=== PATIENT | female | born 1990 | race Caucasian/White ===

== ENCOUNTER 2022-12-21 16:25 | Emergency (ER) | payer OTHER ==
[~2022-12-21] VITALS: Ht 165.1 cm; Wt 55.4 kg
[2022-12-21 16:27] VITALS: BP 135/77
[2022-12-21 18:14] LABS: BASO # 0.1 10^3/uL (0.0-0.2); BASO % 0.5 % (0.0-1.0); EOS # 0.1 10^3/uL (0.0-0.5); EOS % 0.5 % (0.0-3.0); HEMATOCRIT 35.5 % (36.0-47.0); HEMOGLOBIN 12.3 g/dl (12.0-15.5); LYMPH % 20.7 % (24.0-44.0); MEAN CORPUSCULAR HEMOGLOBIN 30.4 pg (27.0-33.0); MEAN CORPUSCULAR HGB CONC 34.6 g/dl (32.0-36.5); MEAN CORPUSCULAR VOLUME 87.7 fl (80.0-96.0); MONO # 0.6 10^3/uL (0.0-0.8); MONO % 5.8 % (2.0-8.0); NEUTROPHILS # 6.9 10^3/uL (1.5-8.5); NEUTROPHILS % 72.2 % (36.0-66.0); PLATELET COUNT, AUTOMATED 305 10^3/uL (150-450); RED BLOOD COUNT 4.05 10^6/uL (4.00-5.40); WHITE BLOOD COUNT 9.6 10^3/uL (4.0-10.0)
[2022-12-21 18:35] LABS: LIPASE 47 U/L (12-53)
[2022-12-21] MEDS ORDERED: MORPHINE 4 MG/ML 1ML VIAL IV ONE (18:35)
[2022-12-21] MEDS ORDERED: ONDANSETRON 4MG 2ML VIAL IV ONE (18:35)
[2022-12-21] MEDS ORDERED: NS 1,000 ML IV ONE (18:35)
[2022-12-21 18:37] LABS: ALBUMIN 4.5 G/DL (3.2-5.2); ALKALINE PHOSPHATASE 58 U/L (46-116); ALT/SGPT 19 U/L (7.0-40); AST/SGOT 21 U/L (<34); BILIRUBIN,DIRECT 0.4 MG/DL (<0.4); BILIRUBIN,TOTAL 1.2 MG/DL (0.3-1.2); BLOOD UREA NITROGEN 11 MG/DL (9-23); CALCIUM LEVEL 9.4 MG/DL (8.5-10.1); CARBON DIOXIDE LEVEL 23 MMOL/L (20-31); CHLORIDE LEVEL 105 MMOL/L (98-107); GLOMERULAR FILTRATION RATE > 60.0 (>60); GLUCOSE, FASTING 86 MG/DL (60-100); POTASSIUM SERUM 4.1 MMOL/L (3.5-5.1); SODIUM LEVEL 137 MMOL/L (136-145); TOTAL PROTEIN 6.8 G/DL (5.7-8.2)
[2022-12-21 18:42] LABS: HCG, SERUM QUALITATIVE NEGATIVE (NEGATIVE)
[2022-12-21] MEDS ORDERED: KETOROLAC 30 MG/ML 1ML VIAL IV ONE (20:35)
[2022-12-21] MEDS ORDERED: KETO10TAB PO (21:07)
== END 2022-12-21 21:47 | disposition home or self-care (01) ==
LOC: M ED 16:25
DX: R10.31 Right lower quadrant pain (principal); D13.4 Benign neoplasm of liver; K58.9 Irritable bowel syndrome, unspecified; Z79.899 Other long term (current) drug therapy
CPT/HCPCS: 74176; 76705; 80048; 80076; 81001; 83690; 84703; 85025; 96361; 96374; 96375; 99282; J1885; J2405

== ENCOUNTER 2025-02-28 19:31 | Emergency (ER) | payer OTHER ==
[~2025-02-28] VITALS: Ht 165.1 cm; Wt 51.0 kg
[~2025-02-28 19:31] MED LIST: KETO10TAB PO
[2025-02-28] MEDS: IPRATROPIUM 0.5 MG/ALBUTEROL 2.5 MG INH SOL UD 3 ML NEB PRN (20:07)
[2025-02-28] MEDS: BENZONATATE 100 MG CAPSULE PO ONE (20:36)
[2025-02-28] MEDS ORDERED: ALBU8.5H INH ×2 (20:52→21:40)
[2025-02-28] MEDS ORDERED: HOME MED LIST COMPLETE! XX SCH (20:55)
[2025-02-28] MEDS ORDERED: MUCI1TAB16 PO (21:44)
[2025-02-28 21:49] VITALS: BP 108/60; TEMP 96.3; O2SAT 97
== END 2025-02-28 21:55 | disposition home or self-care (01) ==
LOC: M ED 19:31
DX: R06.02 Shortness of breath (principal); R06.2 Wheezing; F17.290 Nicotine dependence, other tobacco product, uncomplicated; Z79.899 Other long term (current) drug therapy
CPT/HCPCS: 71045; 87486; 87581; 87633; 87798; 93041; 94640; 94760; 96374; 99284; J2919